=== PATIENT | female | born 1985 | race Caucasian/White ===

== ENCOUNTER 2019-01-01 15:57 | Emergency (ER) | payer MEDICAID ==
[~2019-01-01] VITALS: Ht 162.6 cm; Wt 89.8 kg
[2019-01-01 16:10] VITALS: BP 140/73
--- NOTE | 2019-01-01 16:12 | NUR ---
PT TRIAGED AND SENT TO ER LOBBY
--- NOTE | 2019-01-01 17:23 | NUR ---
PT AMBULATES TO BED 1
--- NOTE | 2019-01-01 17:26 | NUR ---
PT PRESENTED TO THE ED WITH THE CHIEF C/O DRY COUGH FOR 3 DAYS. NO BLOOD IN COUGH. PT ALSO REPORT S FEELING OF WARMNESS/FEVER DURING NIGHT. DID NOT CHECK TEMPERATURE. NOT TAKING MEDS FOR COUGH AND FEVER. AFEBRILE AT THIS TIME. LUNGS SOUNDS CLEAR. STATES GENERALIZED BODY PAIN OF 5/10. VSS. ER AWARE.
[2019-01-01] MEDS ORDERED: ALBUTEROL SULFATE/IPRATROPIU 3 ML SOL IH ONE (17:50)
[2019-01-01] MEDS ORDERED: cefTRIAXone 1,000 MG in LIDOCAINE 1% ***ER ONLY *** 2.1 ML IM ONE (17:50)
[2019-01-01] MEDS ORDERED: DEXAMETHASONE 10 MG/ML VIAL IM ONE (17:50)
[2019-01-01] MEDS ORDERED: cefTRIAXone 1,000 MG VIAL ONE (18:06)
[2019-01-01] MEDS ORDERED: LIDOCAINE MPF 1% 5mL VIAL ONE (18:07)
--- NOTE | 2019-01-01 19:15 | NUR ---
AFEBRILE. NO CHANGE IN CONDITION. NO C/O PAIN AT THIS TIME. REPORT GIVEN TO ACTIVITIES MANAGER RN.
--- NOTE | 2019-01-01 19:28 | NUR ---
PT AAOX4, AND ACTING APPROPRIATLY. PT STATES SHE IS FEELING BETTER, 0/10 PAIN.
--- NOTE | 2019-01-01 19:38 | NUR ---
Patient discharged with v/s stable. Patient states 0/10 pain at this time and states she is ready to go home and is feeling better. Written and verbal after care instructions given and explained. Patient alert, oriented and verbalized understanding of instructions. Ambulatory with steady gait. All questions addressed prior to discharge. ID band removed. Patient advised to follow up with PMD. Rx of Prednisone, Promethazine, and Azithromycin given. Patient educated on indication of medication including possible reaction and side effects. Opportunity to ask questions provided and answered.
[2019-01-01 19:40] VITALS: BP 114/79
== END 2019-01-01 19:38 | disposition home or self-care (01) ==
LOC: MED 15:57
DX: J02.9 Acute pharyngitis, unspecified (principal); R05 Cough; R09.81 Nasal congestion
CPT/HCPCS: 81002; 81025; 94640; 96372; 99283; J0696; J1100; J2001; J7620